=== PATIENT | female | born 1960 | race Caucasian/White ===

== ENCOUNTER 2018-12-29 00:51 | Emergency (ER) | payer OTHER ==
[2018-12-29] MEDS ORDERED: Nitrofurantoin Macrocrystal 50 MG CAP ONE (01:16)
[2018-12-29] MEDS ORDERED: cefTRIAXone\\ROCEPHIN 1 GM VIAL ONE (01:16)
[2018-12-29] MEDS ORDERED: Lidocaine 1% MPF 2 ML VIAL ONE (01:17)
[2018-12-29 01:21] LABS: Clarity Turbid (Clear); Leukocyte Unable to Interpret (Negative); Nitrite Unable to Interpret (Negative); Specific Gravity, Urine 1.025 (1.005-1.030); pH, Urine 5.5 (5.0-9.0)
[2018-12-29 01:22] LABS: Bacteria/HPF 3+ HPF (None Seen); Bilirubin Unable to Interpret (Negative); Blood, Urine Unable to Interpret (Negative); Glucose, Urine (Dipstick) Unable to Interpret mg/dL (Negative); Hyaline Casts/LPF 0-3 HYALINE CAST LPF (0-3 Hyaline); Protein, Urine (Dipstick) Unable to Interpret mg/dL (Neg-Trace); RBC/HPF GREATER THAN 50-TNTC HPF (0-3); Urobilinogen UNABLE TO INTERPRET mg/dL (0.2-1.0); Yeast-All Forms Rare HPF (None Seen)
== END 2018-12-29 01:45 | disposition home or self-care (01) ==
LOC: SCSER 00:51
DX: N30.01 Acute cystitis with hematuria (principal); J45.909 Unspecified asthma, uncomplicated; E11.9 Type 2 diabetes mellitus without complications; Z79.899 Other long term (current) drug therapy; Z79.84 Long term (current) use of oral hypoglycemic drugs
CPT/HCPCS: 81003; 81015; 96372; J0696; J2001